=== PATIENT | male | born 1970 | race African-American/Black ===

== ENCOUNTER 2017-12-29 13:16 | Emergency (ER) | payer OTHER ==
--- NOTE | 2017-12-29 13:50 | RAD ---
3 VIEWS RIGHT HAND: Date: 12/29/17 COMPARISON: None. HISTORY: Cut hand with table saw across the wrist and onto the palm. FINDINGS: Three views of the right hand show no evidence of acute fracture or dislocation. No radiopaque foreig n body is seen. No degenerative changes are seen. IMPRESSION: Unremarkable exam. POS: [facility]
[2017-12-29] MEDS ORDERED: Lidocaine 1% PF 5 ML VIAL ONE (13:57)
[2017-12-29] MEDS ORDERED: Lidocaine 1% (PF) 30 ML VIAL ONE (13:59)
[2017-12-29] MEDS ORDERED: Lidocaine 1% w/Epinephrine 1:100K 20 ML VIAL ONE (13:59)
[2017-12-29] MEDS ORDERED: Adacel (T-DAP) 0.5 ML VIAL ONE (14:22)
[2017-12-29] MEDS ORDERED: Bacitracin Zinc 1 Packet ONE (15:31)
== END 2017-12-29 15:51 | disposition home or self-care (01) ==
LOC: ERS 13:16
DX: S61.411A Laceration without foreign body of right hand, initial encounter (principal); S61.511A Laceration without foreign body of right wrist, initial encounter; S61.412A Laceration without foreign body of left hand, initial encounter; S61.512A Laceration without foreign body of left wrist, initial encounter; I10 Essential (primary) hypertension; Z79.899 Other long term (current) drug therapy; Z23 Encounter for immunization; W27.0XXA Contact with workbench tool, initial encounter
CPT/HCPCS: 12004; 90471; 90715; 96372; J2001; J2270